=== PATIENT | female | born 1970 | race Asian ===

== ENCOUNTER 2019-05-14 07:04 | Outpatient (CLI) | payer OTHER ==
--- NOTE | 2019-05-14 08:56 | ULT ---
ABDOMINAL ULTRASOUND: HISTORY: Abdominal pain. FINDINGS: Real-time imaging of the upper abdomen shows the gallbladder to have been removed. The common duct i s 3 mm. The liver is mildly heterogeneous in appearance, but no focal discrete lesions. The spleen measures 8.6 cm in length. The pancreas is largely obscured. Right and left kidneys are normal in size but not obstructed. Abdominal aorta and IVC regions are un remarkable. IMPRESSION: Postop cholecystectomy change. POS: [facility]
== END 2019-05-14 07:05 | disposition home or self-care (01) ==
LOC: SCSULT 07:04
PROVIDERS: ATTEND Family Medicine
DX: K21.9 Gastro-esophageal reflux disease without esophagitis (principal); R10.31 Right lower quadrant pain; R13.10 Dysphagia, unspecified; E78.00 Pure hypercholesterolemia, unspecified; K76.0 Fatty (change of) liver, not elsewhere classified; Z90.49 Acquired absence of other specified parts of digestive tract
CPT/HCPCS: 76700